=== PATIENT | female | born 1940 | race Caucasian/White ===

== ENCOUNTER 2016-10-05 14:13 | Emergency (ER) | payer OTHER ==
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
[2016-10-05 15:45] VITALS: BP 164/95; PULSE 77; RESP 16; TEMP 98.4; O2SAT 97
== END 2016-10-05 15:49 | disposition home or self-care (01) ==
LOC: EDUNIT#
DX: R42 Dizziness and giddiness (principal); E11.9 Type 2 diabetes mellitus without complications; I10 Essential (primary) hypertension

== ENCOUNTER 2016-10-09 12:49 | Inpatient (IN) | payer OTHER ==
[2016-10-09] MEDS ORDERED: NS 1,000 ML IV ONE (13:45)
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
[2016-10-09 14:12] LABS: % IMMATURE GRANULYOCYTES 0.2 % (0.0-1.1); ABSOLUTE IMMATURE GRANULOCYTES 0.02 10^3/uL (0.00-0.10); ADD DIFF? NO; ADD MORPH? NO; ADD SCAN? NO; ATYPICAL LYMPHOCYTE FLAG 0 (0-99); FRAGMENT RBC FLAG 0 (0-99); HEMATOCRIT 44.6 % (38.0-47.0); HEMOGLOBIN 15.7 g/dL (12.6-16.3); LEFT SHIFT FLG 0 (0-99); LIPEMIA HEMOLYSIS FLAG 90 (0-99); MEAN CELL HEMOGLOBIN 31.9 pg (27.9-34.1); MEAN CELL HEMOGLOBIN CONCENTR. 35.2 g/dL (32.4-36.7); MEAN CELL VOLUME 90.7 fL (81.5-99.8); MEAN PLATELET VOLUME 9.1 fL (8.7-11.7); PLATELET CLUMPS FLAG 0 (0-99); PLATELET COUNT 270 10^3/uL (150-400); RED BLOOD CELL COUNT 4.92 10^6/uL (4.18-5.33); RED CELL DISTRIBUTION WIDTH 11.7 % (11.5-15.2)
[2016-10-09 14:31] LABS: ANION GAP 15 mEq/L (8-16); CALCIUM 9.6 mg/dL (8.5-10.4); CARBON DIOXIDE 21 mEq/l (22-31); CHLORIDE 103 mEq/L (97-110); CREATININE 0.7 mg/dL (0.6-1.0); GLOMERULAR FILTRATION RATE > 60; GLUCOSE 224 mg/dL (70-100); POTASSIUM 4.3 mEq/L (3.5-5.2); SODIUM 139 mEq/L (134-144)
[2016-10-09] MEDS ORDERED: IOPAMIDOL (ISOVUE-300) 50 ML VIAL IV ONE (14:43)
[2016-10-09 15:37] LABS: COLOR PALE YELLOW; LEUKOCYTE ESTERASE,URINE NEGATIVE (NEGATIVE); NITRITE,URINE NEGATIVE (NEGATIVE)
--- NOTE | 2016-10-09 15:50 | CT ---
CT Scan of the Abdomen and Pelvis (With Contrast) Clinical Indications: Abdominal and flank pain. Technique: Dilute contrast was given orally prior to scanning. 54 mL of Isovue-300 were given intra venously by machine power injection. Multidetector helical CT imaging was performed from the diaphra gm to the symphysis pubis. Delayed was performed through the liver. Dose reduction techniques were ut ilized. Findings: The lung bases are clear. There is a right-sided portal venous thrombosis. There is right hepatic atrophy. There is some peripheral low density on the delayed imaging. The spleen is unremarka ble. There is no splenic or superior mesenteric venous clot. The inferior mesenteric vein is patent. Incidental low density is present in the right kidney too small to characterize, likely a benign cyst . There are multiple parapelvic cysts bilaterally. The ureters are unremarkable and opacified from a test contrast injection that failed. No evidence of nephrolithiasis. Bilateral ureteral jets are note d in the bladder. Small bowel and colon are unremarkable. There is a moderate amount of atherosclerotic disease without evidence of an aneurysm. The celiac axis and SMA are patent. Renal arteries are patent. ALLIE is small , but patent. Distal aorta is mildly narrowed. Surgical clips are noted in the low pelvis. Surgical suture material is noted around the cecum. The u terus is surgically absent. The bones exhibit degenerative changes. No evidence of lytic or blastic lesions. Impression: 1. Right portal venous thrombosis. The acuity of this is indeterminate, however, there is some right hepatic atrophy. There is some vague low density on the delayed imaging. An MRI of the liver multipha sic with contrast is recommended for further evaluation to exclude an underlying hepatocellular carci noma. 2. No radiographic evidence to explain the patient's abdominal and flank pain. 3. Prior surgery of the cecal base and hysterectomy and tubal ligation. Critical results relayed by Dr. Johnie Medeiros to Dr. Johnie Gutierrez on October 09, 2016 at 1335 hours.
[2016-10-09] MEDS ORDERED: HEPARIN/DEXTROSE 500 ML IV ONE (16:46)
[2016-10-09 17:24] LABS: INR 1.01 (0.83-1.16); PROTIME(PATIENT) 13.2 SEC (12.0-15.0)
[2016-10-09 17:25] LABS: APTT 30.3 SEC (23.0-38.0)
[2016-10-09] MEDS ORDERED: ACETAMINOPHEN 325 MG TAB PO PRN (18:32)
[2016-10-09] MEDS ORDERED: ONDANSETRON 4 MG/2 ML VIAL IVP PRN (18:32)
[2016-10-09] MEDS ORDERED: ONDANSETRON DISINTEGRATING 4 MG TAB PO PRN (18:32)
[2016-10-09] MEDS ORDERED: ENOXAPARIN 60 MG/0.6 ML SYR SC SCH (19:00)
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
[2016-10-09] MEDS: glipiZIDE 5 MG TAB PO SCH (21:08)
[2016-10-09] MEDS: ENOXAPARIN 80 MG/0.8 ML SYR SC SCH (21:09)
[2016-10-09] MEDS: TEMAZEPAM 15 MG CAP PO PRN (21:09)
[2016-10-10 06:12] LABS: % IMMATURE GRANULYOCYTES 0.3 % (0.0-1.1); ABSOLUTE IMMATURE GRANULOCYTES 0.02 10^3/uL (0.00-0.10); ADD DIFF? NO; ADD MORPH? NO; ADD SCAN? NO; ATYPICAL LYMPHOCYTE FLAG 10 (0-99); FRAGMENT RBC FLAG 0 (0-99); HEMOGLOBIN 13.2 g/dL (12.6-16.3); LEFT SHIFT FLG 0 (0-99); LIPEMIA HEMOLYSIS FLAG 90 (0-99); MEAN CELL HEMOGLOBIN 31.8 pg (27.9-34.1); MEAN CELL HEMOGLOBIN CONCENTR. 34.7 g/dL (32.4-36.7); MEAN CELL VOLUME 91.6 fL (81.5-99.8); MEAN PLATELET VOLUME 9.2 fL (8.7-11.7); PLATELET CLUMPS FLAG 0 (0-99); PLATELET COUNT 192 10^3/uL (150-400); RED BLOOD CELL COUNT 4.15 10^6/uL (4.18-5.33); RED CELL DISTRIBUTION WIDTH 11.8 % (11.5-15.2)
[2016-10-10 06:26] LABS: ALANINE AMINOTRANSFERASE 27 IU/L (9-52); ALBUMIN 2.8 g/dL (3.5-5.0); ALKALINE PHOSPHATASE 54 IU/L (38-126); ANION GAP 9 mEq/L (8-16); ASPARTATE AMINOTRANSFERASE 20 IU/L (14-46); BILIRUBIN,TOTAL 0.7 mg/dL (0.1-1.4); CALCIUM 7.7 mg/dL (8.5-10.4); CARBON DIOXIDE 20 mEq/l (22-31); CHLORIDE 113 mEq/L (97-110); CREATININE 0.6 mg/dL (0.6-1.0); GLOMERULAR FILTRATION RATE > 60; GLUCOSE 126 mg/dL (70-100); POTASSIUM 3.7 mEq/L (3.5-5.2); SODIUM 142 mEq/L (134-144); TOTAL PROTEIN 5.5 g/dL (6.3-8.2)
[2016-10-10] MEDS ORDERED: GADOBUTROL 10 ML VIAL IVP ONE (10:05)
[2016-10-10] MEDS: glipiZIDE 5 MG TAB PO SCH ×2 (11:45→20:41)
[2016-10-10] MEDS: ENOXAPARIN 80 MG/0.8 ML SYR SC SCH (11:45)
--- NOTE | 2016-10-10 11:55 | MR ---
MRI of the Abdomen, Without and With Contrast October 10, 2016 History: Trauma. Right portal vein thrombosis. Technique: Precontrast MR sequences of the liver are obtained in the axial and coronal planes utilizi ng multiple pulse sequences. After intravenous administration of 7 mL Gadavist, postcontrast enhanced MR imaging of the liver is performed utilizing multiphasic technique. Comparison Study: October 09, 2016, CT abdomen. Findings: There is a linear area of signal abnormality involving the posterior segment of the right h epatic lobe paralleling the course of the right portal vein compatible with an hepatic laceration. No evidence of subcapsular hematoma. There is secondary thrombosis of the right portal vein past the po rtal bifurcation. The left portal vein is widely patent as is the main portal vein. No evidence of pe ritoneal fluid or hemorrhage. The remainder of the hepatic parenchyma enhances normally. No underlyin g hepatic mass identified. The spleen and kidneys enhance unremarkably. There is a small cyst present in the anterior aspect of mid right kidney. Adrenal glands and pancreas appear unremarkable as visualized. There is a fluid/flu id level within the gallbladder which may represent hemorrhage or biliary sludge. On dynamic contrast-enhanced imaging, the right hepatic lobe laceration is again demonstrated along w ith thrombosis of the right portal vein. Parapelvic cysts are present in the kidneys bilaterally, without features of obstructive uropathy. Impressions 1. Right hepatic lobe laceration with secondary thrombosis of the right portal vein. No evidence of s ubcapsular hematoma or peritoneal hemorrhage. 2. Parapelvic cysts within both kidneys. Examination reviewed with Dr. Kaushik Ornelas.
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
[2016-10-10 18:30] LABS: HEMATOCRIT 45.9 % (38.0-47.0); HEMOGLOBIN 15.6 g/dL (12.6-16.3)
[2016-10-11] MEDS: TEMAZEPAM 15 MG CAP PO PRN (00:05)
[2016-10-11 00:17] LABS: HEMATOCRIT 37.6 % (38.0-47.0); HEMOGLOBIN 12.6 g/dL (12.6-16.3)
[2016-10-11 05:47] LABS: HEMOGLOBIN 14.2 g/dL (12.6-16.3)
[2016-10-11] MEDS ORDERED: POLYETHYLENE GLYCOL 3350 17 GM PKT PO ONE (10:00)
[2016-10-11] MEDS: oxyCODONE IR 5 MG TAB PO PRN ×2 (10:29→20:00)
[2016-10-11 10:45] LABS: % IMMATURE GRANULYOCYTES 0.2 % (0.0-1.1); ABSOLUTE IMMATURE GRANULOCYTES 0.02 10^3/uL (0.00-0.10); ADD DIFF? NO; ADD MORPH? NO; ADD SCAN? NO; ATYPICAL LYMPHOCYTE FLAG 10 (0-99); FRAGMENT RBC FLAG 0 (0-99); HEMATOCRIT 42.6 % (38.0-47.0); HEMOGLOBIN 14.9 g/dL (12.6-16.3); LEFT SHIFT FLG 0 (0-99); LIPEMIA HEMOLYSIS FLAG 90 (0-99); MEAN CELL HEMOGLOBIN 31.7 pg (27.9-34.1); MEAN CELL VOLUME 90.6 fL (81.5-99.8); MEAN PLATELET VOLUME 8.9 fL (8.7-11.7); PLATELET CLUMPS FLAG 0 (0-99); PLATELET COUNT 218 10^3/uL (150-400); RED CELL DISTRIBUTION WIDTH 11.5 % (11.5-15.2)
[2016-10-11] MEDS: glipiZIDE 5 MG TAB PO SCH ×2 (10:58→19:59)
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
[2016-10-11 12:38] LABS: ALANINE AMINOTRANSFERASE 28 IU/L (9-52); ALBUMIN 3.7 g/dL (3.5-5.0); ALKALINE PHOSPHATASE 74 IU/L (38-126); ANION GAP 11 mEq/L (8-16); ASPARTATE AMINOTRANSFERASE 24 IU/L (14-46); BILIRUBIN,TOTAL 0.8 mg/dL (0.1-1.4); CALCIUM 9.3 mg/dL (8.5-10.4); CARBON DIOXIDE 21 mEq/l (22-31); CHLORIDE 107 mEq/L (97-110); CREATININE 0.7 mg/dL (0.6-1.0); GLOMERULAR FILTRATION RATE > 60; GLUCOSE 188 mg/dL (70-100); POTASSIUM 3.9 mEq/L (3.5-5.2); SODIUM 139 mEq/L (134-144); TOTAL PROTEIN 6.8 g/dL (6.3-8.2)
[2016-10-11] MEDS ORDERED: IOPAMIDOL (ISOVUE 370) 75 ML BTL IV ONE (13:20)
[2016-10-11] MEDS ORDERED: MAGNESIUM HYDROXIDE 30 ML UDCUP PO PRN (13:31)
[2016-10-11] MEDS ORDERED: LACTULOSE 20 GM/30 ML UDCUP PO PRN (13:31)
[2016-10-11] MEDS ORDERED: BISACODYL 10 MG SUPP PR PRN (13:31)
--- NOTE | 2016-10-11 14:27 | CPEKG ---
Heart Rate: 74 RR Interval: 811 P-R Interval: 180 QRSD Interval: 80 QT Interval: 384 QTC Interval: 426 P [place]: 61 QRS [place]: 37 T Wave [place]: -20 EKG Severity - OTHERWISE NORMAL ECG - EKG Impression: SINUS RHYTHM EKG Impression: VENTRICULAR PREMATURE COMPLEX Electronically Signed By: Cliff Worthy 11-Oct-2016 16:54:31
--- NOTE | 2016-10-11 15:19 | CT ---
CT Pulmonary Angiography, October 11, 2016 History: Shortness of breath, history of colon cancer, hepatic laceration and portal vein thrombosis on recent imaging. Comparison: CT abdomen and pelvis October 09, 2016. MR abdomen October 10, 2016. Technique: Axial contrast-enhanced images were obtained through the chest following the uneventful in travenous administration of 73 mL Isovue-370. Creatinine is 0.7. Multiplanar reformations were perfo rmed through the pulmonary arteries. Dose reduction techniques were utilized. Findings: This is a good quality study with visualization of the vessels to the subsegmental level. T here is no pulmonary embolus. Scattered granulomas are present. Heart size is normal. The interventri cular septum is normal. The ascending aorta is ectatic, measuring 3.8 cm, with mild atherosclerosis without dissection. Coronary artery atherosclerosis is present. No pathologically enlarged lymph node s are identified. A 4 cm right subscapular lipoma is noted. A peripherally calcified 1.7 cm left thyr oid nodule is noted. Degenerative change is present in the spine. Partial fusion of the posterior lef t 5th and 6th ribs is noted. Ill-defined branching hypodensity in the posterior right hepatic lobe in an area of presumed hematoma /laceration and portal vein thrombosis is again noted. Impression: 1. No visible pulmonary embolus. 2. 1.7 cm left thyroid nodule. Thyroid ultrasound is recommend for further evaluation. 3. Limited characterization of previously noted right hepatic upper valgus. 4. Ectatic ascending aorta. 5. Additional findings as above. Findings discussed with Kirill the patient's nurse today at 1503 hours. Findings were communicated via secure Voalte text to Rodolfo Lopez today at 1506 hours.
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
[2016-10-11] MEDS: SENNOSIDES/DOCUSATE SODIUM TAB PO SCH (19:59)
[2016-10-12 06:08] LABS: % IMMATURE GRANULYOCYTES 0.2 % (0.0-1.1); ABSOLUTE IMMATURE GRANULOCYTES 0.02 10^3/uL (0.00-0.10); ADD DIFF? NO; ADD MORPH? NO; ADD SCAN? NO; ATYPICAL LYMPHOCYTE FLAG 10 (0-99); FRAGMENT RBC FLAG 0 (0-99); HEMATOCRIT 43.1 % (38.0-47.0); HEMOGLOBIN 14.7 g/dL (12.6-16.3); LEFT SHIFT FLG 0 (0-99); LIPEMIA HEMOLYSIS FLAG 90 (0-99); MEAN CELL HEMOGLOBIN 31.5 pg (27.9-34.1); MEAN CELL HEMOGLOBIN CONCENTR. 34.1 g/dL (32.4-36.7); MEAN CELL VOLUME 92.5 fL (81.5-99.8); MEAN PLATELET VOLUME 8.9 fL (8.7-11.7); PLATELET CLUMPS FLAG 0 (0-99); PLATELET COUNT 222 10^3/uL (150-400); RED BLOOD CELL COUNT 4.66 10^6/uL (4.18-5.33); RED CELL DISTRIBUTION WIDTH 11.6 % (11.5-15.2)
[2016-10-12 06:23] LABS: ALANINE AMINOTRANSFERASE 34 IU/L (9-52); ALBUMIN 3.8 g/dL (3.5-5.0); ALKALINE PHOSPHATASE 68 IU/L (38-126); ANION GAP 10 mEq/L (8-16); ASPARTATE AMINOTRANSFERASE 22 IU/L (14-46); BILIRUBIN,TOTAL 0.8 mg/dL (0.1-1.4); CALCIUM 9.1 mg/dL (8.5-10.4); CARBON DIOXIDE 25 mEq/l (22-31); CHLORIDE 105 mEq/L (97-110); CREATININE 0.7 mg/dL (0.6-1.0); GLOMERULAR FILTRATION RATE > 60; GLUCOSE 155 mg/dL (70-100); POTASSIUM 4.1 mEq/L (3.5-5.2); SODIUM 140 mEq/L (134-144); TOTAL PROTEIN 6.7 g/dL (6.3-8.2)
[2016-10-12 06:30] LABS: TROPONIN I < 0.012 ng/mL (0-0.034)
[2016-10-12] MEDS: glipiZIDE 5 MG TAB PO SCH (08:15)
[2016-10-12 09:04] VITALS: BP 129/87; PULSE 84; RESP 18; TEMP 98.2; O2SAT 95
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
[2016-10-12] MEDS: SENNOSIDES/DOCUSATE SODIUM TAB PO SCH (12:08)
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
== END 2016-10-12 13:14 | disposition home or self-care (01) | DRG 443 ==
LOC: F1N 18:01 → OBSVTOIN 10-10 12:03
PROVIDERS: ADMIT Hospitalist; ATTEND Internal Medicine
DX: S36.113A Laceration of liver, unspecified degree, initial encounter (principal); S30.1XXA Contusion of abdominal wall, initial encounter; R07.9 Chest pain, unspecified; V49.88XA Car occupant (driver) (passenger) injured in other specified transport accidents, initial encounter; Y92.410 Unspecified street and highway as the place of occurrence of the external cause; Y99.8 Other external cause status; K59.00 Constipation, unspecified; E11.9 Type 2 diabetes mellitus without complications; E04.1 Nontoxic single thyroid nodule
CPT/HCPCS: 97161-GP; A9585; G0378; J1644; J1650; Q9967